=== PATIENT | male | born 1980 | race Caucasian/White ===

== ENCOUNTER 2024-03-26 17:13 | Emergency (ER) | payer MEDICAID ==
[~2024-03-26] VITALS: Ht 188 cm; Wt 98.1 kg
[2024-03-26 17:20] VITALS: TEMP 98.2
[2024-03-26 17:36] VITALS: RESP 16
[2024-03-26 18:06] VITALS: BP 171/119; PULSE 74; O2SAT 96
[2024-03-26] MEDS: LORazepam 1 MG tablet PO ONE (18:12)
[2024-03-26] MEDS ORDERED: ESCI20TA51 PO (18:20)
== END 2024-03-26 18:13 | disposition home or self-care (01) ==
LOC: ER 17:14
DX: F41.1 Generalized anxiety disorder (principal); F32.A Depression, unspecified; F41.0 Panic disorder [episodic paroxysmal anxiety]
CPT/HCPCS: 99283